=== PATIENT | female | born 2000 | race Caucasian/White ===

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

== ENCOUNTER 2019-02-15 12:29 | Outpatient (CLI) | payer MEDICAID, SELFPAY ==
--- NOTE | 2019-02-15 11:00 | DI.US_ITS ---
EXAM: US ABDOMEN RENAL CLINICAL HISTORY: right abd pain, RT FLANK PAIN, RT ABDOMINAL PAIN R10.9, HEMATURIA TECHNIQUE: Ultrasound performed using standard protocol. COMPARISON: PELVIS ULTRASOUND *(P) from 12/24/2015 FINDINGS: Liver is normal in size and echogenicity. No focal liver lesions or biliary dilatation is seen. Th e gallbladder has a normal appearance, without evidence of are of stones or wall thickening. The kid neys are normal in size and show normal parenchymal thickness and echogenicity. No renal calculi or hydronephrosis is seen. No renal mass is identified. The prevoid bladder volume measured 86 cc. Th ere is a 9 cc postvoid residual. No bladder mass or bladder calcification is seen. The spleen and a steven are unremarkable. IMPRESSION: Negative abdomen and renal ultrasound.
== END 2019-02-15 12:49 ==
PROVIDERS: PCP Pediatrics; Visit Provider Nurse Practitioner Family
DX: R10.31 Right lower quadrant pain (principal); R31.9 Hematuria, unspecified
CPT/HCPCS: 76770; 76700

== ENCOUNTER 2019-02-19 10:35 | Outpatient (CLI) | payer MEDICAID, SELFPAY ==
--- NOTE | 2019-02-19 10:30 | DI.RAD_ITS ---
EXAM: XR ABDOMEN FLAT UPRIGHT INDICATION: right flank pain, R10.9. COMPARISON: No exams were available for comparison TECHNIQUE: 2D digital imaging was performed. FINDINGS: The visualized portions of the lung bases appear clear. The heart size is normal. No free air is s een. There is a large quantity of stool seen in the right colon as well as rectum. There is a moder ate quantity of stool seen in the left colon. There is no small bowel dilatation. There are no elly s urinary tract calculi. IMPRESSION: Large quantity of stool consistent with constipation.
[2019-02-19 12:19] LABS: Bilirubin Negative (Negative); Blood Trace-intact (Negative); Clarity Clear (Clear); Glucose Negative (Negative); Ketones Negative (Negative); Leukocyte Esterase Negative (Negative); Nitrite Negative (Negative); Specific Gravity 1.025 (1.005-1.025)
[2019-02-19 12:42] LABS: Abs Immature Grans 0.01 k/cumm (0.0-0.09); Absolute Basophil Count 0.01 k/cumm (0.0-0.2); Absolute Eosinophil Count 0.07 k/cumm (0.0-0.7); Absolute Lymphocyte Count 1.83 k/cumm (1.2-3.4); Absolute Monocyte Count 0.76 k/cumm (0.11-0.7); Absolute Neutrophil Count 5.43 k/cumm (1.2-6.7); Basophils % 0.1; Eosinophils % 0.9; HCT 40.4 % (36.0-46.0); HGB 13.7 g/dL (12.0-15.5); Immature Grans % 0.1; Lymphocytes % 22.6; Mean Corp. HGB Concentration 33.9 g/dL (32.0-36.0); Mean Corpuscular Hemoglobin 29.2 pg (27.0-33.0); Mean Corpuscular Volume 86.1 fL (80-95); Mean Platelet Volume 11.1 fL (8.0-11.0); Monocytes % 9.4; Neutrophils % 66.9; Platelet Count 392 x1000/uL (130-400); RBC 4.69 m/cumm (4.00-5.20); RBC Distribution Width 12.5 % (11.7-14.6); White Blood Cell Count 8.11 k/cumm (4.4-10.8)
[2019-02-19 13:04] LABS: Bacteria Few HPF (Negative); C & S Indicated? No; Casts Negative LPF (Negative); Crystals Negative HPF (Negative); Epithelial Cells Moderate HPF (Negative); Mucus Moderate (Negative); RBC 0-2 (0-2); WBC 0-2 HPF (0-5)
[2019-02-19 13:33] LABS: C-Reactive Protein 2.32 mg/dL (0.0-0.3); TSH (W/Ref FT4) 2.57 uIU/mL (0.52-4.13)
== END 2019-02-19 10:55 ==
PROVIDERS: PCP Pediatrics; Visit Provider Nurse Practitioner Family
DX: R10.31 Right lower quadrant pain (principal); K59.00 Constipation, unspecified; R42 Dizziness and giddiness; R31.9 Hematuria, unspecified
CPT/HCPCS: 36415; 74019; 81003; 81015; 84443; 85025; 86140

== ENCOUNTER 2019-02-19 11:51 | Outpatient (REF) | payer MEDICAID, SELFPAY ==
[2019-02-19 14:52] LABS: Bilirubin Negative (Negative); Blood Trace-lysed (Negative); Clarity Cloudy (Clear); Glucose Negative (Negative); Ketones Negative (Negative); Leukocyte Esterase Negative (Negative); Nitrite Negative (Negative); Specific Gravity 1.025 (1.005-1.025); Urobilinogen 0.2 EU/dL (Up TO 0.2); pH 5.5 (5-8)
[2019-02-19 15:05] LABS: Bacteria Few HPF (Negative); C & S Indicated? No; Casts Negative LPF (Negative); Crystals Moderate Amorphous HPF (Negative); Epithelial Cells Moderate HPF (Negative); Mucus Moderate (Negative); RBC 0-2 (0-2); WBC 0-2 HPF (0-5)
== END 2019-02-19 12:11 ==
LOC: LBN 11:51
PROVIDERS: PCP Pediatrics; Visit Provider Nurse Practitioner Family
DX: R31.9 Hematuria, unspecified (principal); R10.9 Unspecified abdominal pain
CPT/HCPCS: 81003; 81015

== ENCOUNTER 2019-09-12 03:20 | Outpatient (CLI) | payer MEDICAID, SELFPAY ==
[2019-09-12 12:45] LABS: Abs Immature Grans 0.01 k/cumm (0.0-0.09); Absolute Basophil Count 0.01 k/cumm (0.0-0.2); Absolute Eosinophil Count 0.12 k/cumm (0.0-0.7); Absolute Lymphocyte Count 1.84 k/cumm (1.2-3.4); Absolute Monocyte Count 0.73 k/cumm (0.11-0.7); Absolute Neutrophil Count 5.01 k/cumm (1.2-6.7); Basophils % 0.1; Eosinophils % 1.6; HCT 38.8 % (36.0-46.0); HGB 13.2 g/dL (12.0-15.5); Immature Grans % 0.1 %; Lymphocytes % 23.8; Mean Corpuscular Hemoglobin 29.8 pg (27.0-33.0); Mean Corpuscular Volume 87.6 fL (80-95); Mean Platelet Volume 10.4 fL (8.0-11.0); Monocytes % 9.5; Neutrophils % 64.9; Platelet Count 340 x1000/uL (130-400); RBC 4.43 m/cumm (4.00-5.20); RBC Distribution Width 12.5 % (11.7-14.6); White Blood Cell Count 7.72 k/cumm (4.4-10.8)
[2019-09-12 13:50] LABS: ALT 28 U/L (14-59); AST 20 U/L (15-37); Albumin 3.5 g/dL (3.4-5.0); Alkaline Phosphatase 64 U/L (46-116); Anion Gap 4.3 mmol/L (3-11); BUN 14 mg/dL (7-18); Bilirubin, Total 0.2 mg/dL (0.2-1.0); CO2 29.7 mmol/L (21.0-32.0); CREATININE 0.82 mg/dL (0.55-1.02); Calcium 9.2 mg/dL (8.5-10.1); Chloride 100 mmol/L (98-107); Glucose 89 mg/dL (74-106); Potassium 4.1 mmol/L (3.5-5.1); Sodium 134 mmol/L (136-145); TSH (W/Ref FT4) 1.18 uIU/mL (0.36-3.74); Total Protein 7.3 g/dL (6.4-8.2)
[2019-09-13 10:40] LABS: Lyme Ab w Rflx to Lyme Confirm Negative (Negative)
[2019-09-16 12:48] LABS: IgA 169 mg/dL (85-499); Tissue Transglutaminase IgA <1.2 U/mL (<4.0)
[2019-09-16 21:26] LABS: Anaplasma phagocytophilum Negative (Negative); B. miyamotoi PCR Negative (Negative); Babesia divergens/MO-1 Negative (Negative); Babesia duncani Negative (Negative); Babesia microti Negative (Negative); Ehrlichia chaffeensis Negative (Negative); Ehrlichia ewingii/canis Negative (Negative); Ehrlichia muris eauclairensis Negative (Negative)
== END 2019-09-12 03:40 ==
PROVIDERS: PCP Pediatrics; Visit Provider Nurse Practitioner Family
DX: M79.10 Myalgia, unspecified site (principal); R51 Headache; R10.9 Unspecified abdominal pain; G89.29 Other chronic pain
CPT/HCPCS: 36415; 80053; 82784; 83516; 87798; U0003; 84443; 85025; 86618

== ENCOUNTER 2019-09-12 07:20 | Outpatient (CLI) | payer MEDICAID, SELFPAY ==
[2019-09-13 19:45] LABS: COVID-19 RT-PCR UVMMC Result Negative (Negative)
== END 2019-09-12 07:40 ==
PROVIDERS: PCP Pediatrics; Visit Provider Nurse Practitioner Family
DX: M79.10 Myalgia, unspecified site (principal)
CPT/HCPCS: U0003